=== PATIENT | male | born 1955 | race Caucasian/White ===

== ENCOUNTER 2019-04-14 17:25 | Inpatient (IN) ==
[2019-04-14 18:17] LABS: BASO# 0.06 X1000 (0.0-0.2); BASO% 0.4 % (0.0-0.8); EOS# 0.33 X1000 (0.0-0.7); EOS% 2.2 % (0.0-10.0); IMM GRAN# 0.05 X1000 (0.0-0.04); IMM GRAN% 0.3 % (0.0-0.5); LYMPH# 2.36 X1000 (1.2-3.4); LYMPH% 15.9 % (20.5-51.1); MCH 28.6 PG (27-31); MCHC 32.1 g/dL (33-37); MCV 89.2 FL (81-99); MONO# 1.39 X1000 (0.11-0.59); MONO% 9.4 % (1.7-9.3); MPV 9.9 FL (7.4-10.4); NEUT# 10.62 X1000 (1.4-6.5); NEUT% 71.8 % (42.2-75.2); PLT 305 X1000 (130-400); RBC 5.94 XMIL (4.7-6.1); RDW 14.5 % (11.5-14.5); WBC 14.81 X1000 (4.8-10.8)
[2019-04-14 18:30] LABS: INR 1.04; PROTIME 14.1 Seconds (11.0-16.0)
[2019-04-14 18:31] LABS: PTT 31.5 Seconds (22.3-41.8)
[2019-04-14 18:32] LABS: AGAP 14; ALBUMIN 4.4 g/dL (3.5-5.0); ALKALINE PHOSPHATASE 66 U/L (32-122); BUN 19 mg/dL (8-22); CALCIUM 8.9 mg/dL (8.8-10.2); CHLORIDE 95 mmol/L (98-107); CK PROFILE 149 U/L (24-204); COSMO 275; CREATININE 1.1 mg/dL (0.7-1.2); ESTIMATED GFR > 60; GLUCOSE 119 mg/dL (70-104); GOT 23 U/L (10-34); GPT 28 U/L (10-44); SODIUM 136 mmol/L (136-145); TCO2 27 mmol/L (25-35); TOTAL PROTEIN 7.4 g/dL (6.3-8.3)
[2019-04-14] MEDS ORDERED: SOLU-MEDROL IV ONE (18:48)
[2019-04-14] MEDS ORDERED: LEVAQUIN 500 MG/D5W 500 MG/100 ML IVPB IV ONE (18:48)
[2019-04-14] MEDS ORDERED: DUONEB (A & A) INH ONE (18:48)
[2019-04-14] MEDS ORDERED: NS 1,000 ML IV ONE ×2 (18:49→22:35)
--- NOTE | 2019-04-14 18:52 | Diag Imaging Result Doc PS360 ---
EXAM: CHEST-2 VIEWS HISTORY: sepsis protocol TECHNIQUE: Two views COMPARISON: 02/23/2012 FINDINGS: The lungs are hyperexpanded. There is scarring in the upper lungs. The heart is not enlarged. The vessels are not distended. There are no infiltrates. No pleural effusions. IMPRESSION: No pneumonia Electronically signed by Terell Sarabia 04/14/2019 6:50 PM
[2019-04-14 18:58] LABS: INFLUENZA A NEGATIVE (NEGATIVE); INFLUENZA B NEGATIVE (NEGATIVE)
[2019-04-14 19:16] LABS: BE 1.2 mmoll (-3.0-3.0); BLOOD TYPE ARTERIAL; HCO3-(ACT) 25.4 mmoll (20.0-26.0); METHB 1.3 % (0.0-1.5); O2(CT) 21.7 mL/dL (15.0-23.0); PCO2(98.6) 37 mmHg (35-45); PO2(98.6) 50 mmHg (60-100); SAMPLE BLOOD; SAO2 89.2 % (95.0-100.0); pH(98.6) 7.44 (7.35-7.45)
[2019-04-14 19:17] LABS: MODALITY CANNULA
[2019-04-14 19:18] LABS: ALLEN TEST YES
[2019-04-14] MEDS ORDERED: ZOFRAN IV PRN (20:16)
[2019-04-14] MEDS ORDERED: TYLENOL PO PRN (20:16)
[2019-04-14] MEDS ORDERED: MORPHINE IV PRN (20:16)
--- NOTE | 2019-04-14 20:16 | PROVIDER DOCUMENTATION ---
This chart was entered by Mariel Reid Scribe, acting as scribe for Yani Baptiste CRNP. HPI-Respiratory General - General Chief Complaint: SEPSIS ALERT - P Stated Complaint: COUGH / CONGESTION /BP HIGH Time Seen by Provider: 04/14/19 17:49 Source: RN/MD Allergies/Adverse Reactions: Patient Allergies Allergy/AdvReac Type Severity Reaction Status Date / Time No Known Allergies Allergy Verified 02/22/12 00:37 Home Medications: Home Medication List Medication Instructions Recorded Confirmed Last Taken Type Hydrocodone/Acetaminophen [Lortab 1 each PO TID PRN PRN 02/22/12 04/14/19 02/21/12 History 10-500 Tablet] Morphine DENTAL AMALGAM PROCESSOR [Morphine Sulfate DENTAL AMALGAM PROCESSOR] 30 mg PERCUTAN DIRECTED 02/22/12 04/14/19 02/22/12 History Atorvastatin Calcium 1 tab PO DAILY 04/14/19 04/14/19 Unknown History Fluticasone/Vilanterol [Breo 1 dose ORDERED DAILY 04/14/19 04/14/19 Unknown History Ellipta 100-25 Mcg INH] PRAVAstatin [Pravachol] 40 mg PO DAILY 04/14/19 04/14/19 Unknown History Tizanidine HCl 1 tab PO QHS 04/14/19 04/14/19 Unknown History - History of Present Illness-Resp Nature of Presenting Problem: pt is a 63yom c/o 1wk of sob, body aches, malaise and productive cough w/green sputum. pt also reports rt sided cp that is pressure like in nature that worsens when coughing. pt has hx of copd. is a former smoker. Quality of Pain: reports: pressure Severity in ED: reports: mild Onset/Duration: reports: 1 week ago Timing: reports: still present Cough Quality/Degree: reports: productive cough (green sputum) Modifying Factors: improves with: coughing (worsens cp) Associated Symptoms: reports: chest pain/soreness, cough, muscle/bodyaches, shortness of breath Review of Systems - Adult - REVIEW OF SYSTEMS - ADULT Constitutional: reports: see HPI, other (malaise). denies: chills, fever, fatique Eyes: reports: no symptoms reported Ears, Nose, Mouth & Throat: reports: no symptoms reported Cardiovascular: reports: see HPI, chest pain. denies: irregular heart rate, orthopnea, PND Respiratory: reports: see HPI, cough, excessive sputum production (green), shortness of breath. denies: hemoptysis, pleurisy, wheezing Gastrointestinal: reports: no symptoms reported Genitourinary: reports: no symptoms reported Musculoskeletal: reports: see HPI, muscle aches (generalized). denies: bone pain, back pain, neck pain Integumentary: reports: no symptoms reported Neurological: reports: no symptoms reported Psychiatric: reports: no symptoms reported Endocrine: reports: no symptoms reported Hematologic/Lymphatic: reports: no symptoms reported Allergic/Immunologic: reports: no symptoms reported All Other Systems: Reviewed and Negative Past History - Adult - PAST MEDICAL HISTORY-ADULT Review of Records: reports: Nursing Assessment Review, Medications Reviewed, Social history reviewed & non-contributory. Major Childhood Illnesses: reports: denies history Cardiovascular: reports: HTN, hyperlipidemia Respiratory: reports: COPD Gastrointestinal: reports: denies history Obstetrical/Gynecological: reports: denies history Genitourinary: reports: denies history Musculoskeletal: reports: chronic pain Neurological: reports: denies history Endocrine/Immune: reports: denies history Other Conditions: reports: denies history - PRIOR SURGERIES/PROCEDURES Surgical/Procedure History: reports: orthopedic (extremity), back/neck, other (abd pain pump, eye) - IMMUNIZATION STATUS Childhood Immunizations: See Nurse Assessment Flu Vaccine: See Nurse Assessment - FAMILY HISTORY Family History: reviewed, not pertinent - SOCIAL HISTORY Smoking: other (former smoker) Substance Use: none/never Physical Exam-General - PHYSICAL EXAM-ADULT Initial Vital Signs Reviewed: Yes - CONSTITUTIONAL General Appearance: alert, no apparent distress. negative: cachetic, lethargic, obtunded - EYES Eyes: PERRL/EOMI, pink conjunctivae - HEAD, EARS, NOSE, MOUTH & THROAT HENMT: normocephalic/atraumatic, moist mucous membranes - NECK Neck: non-tender, full range of motion, supple, normal inspection - RESPIRATORY Respiratory: lungs clear, normal breath sounds, no pleuratic chest pain, no respiratory distress, no accessory muscle use. negative: chest non-tender, decreased breath sounds, wheezing, pain on inspiration - CARDIOVASCULAR Cardiovascular: normal peripheral pulses, regular rate, rhythm, no edema - CHEST (BREASTS) Chest/Breast: tenderness (reproducible rt sided). negative: no tenderness - GASTROINTESTINAL (ABDOMEN) Abdominal Exam: normal bowel sounds, non tender, soft - MUSCULOSKELETAL Back Exam: normal inspection Extremity: normal range of motion, non-tender, normal inspection - SKIN Integumentary: normal color, normal turgor, diaphoresis. negative: warm/dry, erythema, swelling - NEUROLOGIC Neurologic: grossly normal, no motor/sensory deficits - PSYCHIATRIC Psych/Mental Status: normal mood/affect, normal thought content, normal thought process, oriented x 3 Progress - PLAN OF CARE/RESULTS Progress/Plan/Lab Results: Vital Signs - 8 hr 04/14/19 17:41 04/14/19 18:45 04/14/19 19:09 Temperature 99.5 F Pulse Rate 110 H 106 H Respiratory Rate 24 18 Blood Pressure 164/76 O2 Sat by Pulse Oximetry 92 L 86 L 92 L Laboratory Results - last 24 hr 04/14/19 04/14/19 04/14/19 17:59 18:00 18:00 WBC 14.81 H RBC 5.94 Hgb 17.0 Hct 53.0 H MCV 89.2 MCH 28.6 MCHC 32.1 L RDW Std Deviation 14.5 Plt Count 305 MPV 9.9 Immature Gran % (Auto) 0.3 Neut % (Auto) 71.8 Lymph % (Auto) 15.9 L Hardeman % (Auto) 9.4 H Eos % (Auto) 2.2 Baso % (Auto) 0.4 Immature Gran # (Auto) 0.05 H Neut # (Auto) 10.62 H Lymph # (Auto) 2.36 Hardeman # (Auto) 1.39 H Eos # (Auto) 0.33 Baso # (Auto) 0.06 PT INR PTT (Actin FS) D-Dimer, Quantitative 0.47 Specimen Type Sample Site pH pCO2 pO2 HCO3 Base Excess Oxyhemoglobin ABG O2 Sat (Calculated) ABG O2 Saturation ABG Carboxyhemoglobin ABG Methemoglobin Travis Test A-a O2 Difference Total Hemoglobin Lactate Liter Flow Blood Gas Modality FiO2 % Sodium 136 Potassium 5.0 Chloride 95 L Carbon Dioxide 27 Anion Gap 14 BUN 19 Creatinine 1.1 Estimated GFR/1.73 m2 > 60 BUN/Creatinine Ratio 17 Glucose 119 H Calculated Osmolality 275 Calcium 8.9 Total Bilirubin 0.30 AST 23 ALT 28 Alkaline Phosphatase 66 Creatine Kinase 149 Troponin T High Sens Naq-E-Dsidywriokb Pept Total Protein 7.4 Albumin 4.4 Globulin 3.0 Albumin/Globulin Ratio 1.0 Plasma Lactate Influenza A (Rapid) Influenza B (Rapid) 04/14/19 04/14/19 04/14/19 18:00 18:00 18:29 WBC RBC Hgb Hct MCV MCH MCHC RDW Std Deviation Plt Count MPV Immature Gran % (Auto) Neut % (Auto) Lymph % (Auto) [place] % (Auto) Eos % (Auto) Baso % (Auto) Immature Gran # (Auto) Neut # (Auto) Lymph # (Auto) Hardeman # (Auto) Eos # (Auto) Baso # (Auto) PT 14.1 INR 1.04 PTT (Actin FS) 31.5 D-Dimer, Quantitative Specimen Type Sample Site pH pCO2 pO2 HCO3 Base Excess Oxyhemoglobin ABG O2 Sat (Calculated) ABG O2 Saturation ABG Carboxyhemoglobin ABG Methemoglobin Travis Test A-a O2 Difference Total Hemoglobin Lactate Liter Flow Blood Gas Modality FiO2 % Sodium Potassium Chloride Carbon Dioxide Anion Gap BUN Creatinine Estimated GFR/1.73 m2 BUN/Creatinine Ratio Glucose Calculated Osmolality Calcium Total Bilirubin AST ALT Alkaline Phosphatase Creatine Kinase Troponin T High Sens 15 Qyx-Y-[id number] Pept Total Protein Albumin Globulin Albumin/Globulin Ratio Plasma Lactate Influenza A (Rapid) NEGATIVE Influenza B (Rapid) NEGATIVE 04/14/19 04/14/19 04/14/19 18:29 18:29 19:00 WBC RBC Hgb Hct MCV MCH MCHC RDW Std Deviation Plt Count MPV Immature Gran % (Auto) Neut % (Auto) Lymph % (Auto) Hardeman % (Auto) Eos % (Auto) Baso % (Auto) Immature Gran # (Auto) Neut # (Auto) Lymph # (Auto) Hardeman # (Auto) Eos # (Auto) Baso # (Auto) PT INR PTT (Actin FS) D-Dimer, Quantitative Specimen Type ARTERIAL Sample Site R BRACHIAL pH 7.44 pCO2 37 pO2 50 L HCO3 25.4 Base Excess 1.2 Oxyhemoglobin 86.0 L* ABG O2 Sat (Calculated) 21.7 ABG O2 Saturation 89.2 L ABG Carboxyhemoglobin 2.30 ABG Methemoglobin 1.3 Travis Test YES A-a O2 Difference 103.0 Total Hemoglobin 18.0 H Lactate 0.90 Liter Flow 2.0 Blood Gas Modality CANNULA FiO2 % 28.0 Sodium Potassium Chloride Carbon Dioxide Anion Gap BUN Creatinine Estimated GFR/1.73 m2 BUN/Creatinine Ratio Glucose Calculated Osmolality Calcium Total Bilirubin AST ALT Alkaline Phosphatase Creatine Kinase Troponin T High Sens Pxo-D-Wibmbpmqnbc Pept 45 Total Protein Albumin Globulin Albumin/Globulin Ratio Plasma Lactate 1.2 Influenza A (Rapid) Influenza B (Rapid) Orders Category Date Time Status Cardiac Monitoring DIRECTED Care 04/14/19 17:46 Active IV Insertion ORDERED Care 04/14/19 17:46 Completed Notify MD of + Sepsis Screen NOW Care 04/14/19 17:46 Active Notify Physician As Ordered Care 04/14/19 17:46 Active CHEST-2 VIEWS [RAD] Stat Exams 04/14/19 17:46 Completed ABG [RESP] Routine Lab 04/14/19 19:00 Completed BLOOD CULTURE [BLDCUL] Stat Lab 04/14/19 18:36 Ordered BNP [PRO B-NATRIURETIC PEPTIDE] Stat Lab 04/14/19 18:29 Completed CBC WITH DIFF [HEME] Stat Lab 04/14/19 18:00 Completed CK PROFILE [SP CHEM] Stat Lab 04/14/19 18:00 Completed COMPREHENSIVE METABOLIC PANEL [CHEM] Stat Lab 04/14/19 18:00 Completed D-DIMER [COAG] Stat Lab 04/14/19 17:59 Completed Flu [INFLUENZA SCREEN PL] Stat Lab 04/14/19 18:29 Completed LACTATE, PLASMA [CHEM] Lab 04/14/19 18:29 Completed LACTATE, PLASMA [CHEM] Lab 04/14/19 21:00 Uncollected LACTATE, PLASMA [CHEM] Lab 04/15/19 00:00 Uncollected PROTIME WITH INR [COAG] Stat Lab 04/14/19 18:00 Completed PTT [COAG] Stat Lab 04/14/19 18:00 Completed TROPONIN T HIGH SENSITIVITY Stat Lab 04/14/19 18:00 Completed URINALYSIS W/POSS RFLX CULT [URINALYSIS] Stat Lab 04/14/19 20:15 Ordered 0.9% Sodium Chloride Inj [Ns] 1,000 ml Med 04/14/19 18:49 Discontinued IV 999 mls/hr Albuterol 2.5MG/Ipratrop 0.5MG [Duoneb (A & A)] Med 04/14/19 18:48 Di scontinued 3 ml INH NOW ONE Levofloxacin 500 mg/D5w [Levaquin 500 mg/D5w] Med 04/14/19 18:48 Discontinued 500 mg in 100 ml IV NOW Methylprednisolone Sod Succ [Solu-Medrol] Med 04/14/19 18:48 Discontinued 125 mg IV NOW ONE Aerosol Treatments Routine Oth 04/14/19 18:48 Completed Aerosol Treatments Stat Oth 04/14/19 18:48 Completed Oxygen Device Stat Oth 04/14/19 17:46 Active EKG [EKG] Stat Ther 04/14/19 17:57 Ordered EKG [EKG] Stat Ther 04/14/19 18:01 Ordered Result Diagrams: 04/14/19 18:00 04/14/19 18:00 - CONSULTS/PCP/HOSPITALIST Notification #1 *Consult/PCP/Hospitalist*: DR. HARO Time Discussed: 20:16 Consult Disposition: Admit Departure - Departure Date of Disposition Decision: 04/14/19 Time of Disposition Decision: 20:16 DIAGNOSIS: COPD exacerbation, Hypoxia Disposition: ADMITTED INPATIENT 09 Certified Medical Emergency: Emergent Condition: Stable Referrals and Follow-Ups: Joe Pulido MD [Primary Care Provider] - - Critical Care Note This patient required my direct & personal management of CC.: No Attestation - Physician/ ADONIS Attestation Patient care was provided by Advanced Practice Provider:: Yes Advanced Practice Provider:: Yani Baptiste Advanced Practice Provider documentation review:: The Mid-level provider documentation, treatment plan and medical decision making was reviewed by the physician who agrees with all treatment and medical decision making by the MLP. The physician spent face to face time with patient:: No Advanced Practice Provider documentation review:: Supervising physician onsite and consulted in the evaluation and care of this patient. The physician did not have a face to face encounter with the patient. This chart was documented by the indicated scribe, (Mariel Reid Scribe) and accurately reflects the services I performed and decisions made by me, Yani Baptiste CRNP, as attested by the provider's signature.
[2019-04-14 20:19] LABS: URINE SOURCE CLEAN CATCH
[2019-04-14 20:24] LABS: BILIRUBIN URINE NEGATIVE (NEGATIVE); BLOOD URINE NEGATIVE (NEGATIVE); COLOR YELLOW; GLUCOSE URINE NEGATIVE (NEGATIVE); KETONE URINE TRACE mg/dL (NEGATIVE); LEUKOCYTES URINE NEGATIVE (NEGATIVE); NITRITE URINE NEGATIVE (NEGATIVE); PROTEIN URINE 30 mg/dL (NEGATIVE); TURBIDITY URINE CLEAR (CLEAR); UROBILINOGEN URINE NORMAL (NORMAL)
[2019-04-14 20:25] LABS: UR EPITHELIAL CELLS <10 /HPF (<10); URINE BACTERIA NEGATIVE /HPF; URINE RBC <10 /HPF (<10); URINE WBC <10 /HPF (<10)
[2019-04-14] MEDS ORDERED: NICODERM PATCH TD ONE (22:00)
[2019-04-14] MEDS: ZITHROMAX 500 MG/NS 500 MG/250 ML IVPB IV SCH (22:05)
[2019-04-14] MEDS ORDERED: NORCO-10 PO ONE (22:10)
[2019-04-14] MEDS ORDERED: ZANAFLEX PO ONE (22:10)
[2019-04-15] MEDS: DUONEB (A & A) INH SCH ×4 (00:19→11:00)
[2019-04-15] MEDS ORDERED: SOLU-MEDROL IV SCH (01:00)
[2019-04-15] MEDS ORDERED: MORPHINE PERCUTAN SCH (11:45)
[2019-04-15] MEDS ORDERED: NORCO-10 PO PRN (12:20)
--- NOTE | 2019-04-15 12:37 | HISTORY AND PHYSICAL ---
PRIMARY CARE PROVIDER: Dr. Pulido. PRIMARY PAIN CLINIC: [facility], Dr. Sapp in [place]. CHIEF COMPLAINT: Shortness of breath and chest pain with cough. HISTORY OF PRESENT ILLNESS: Mr. Dominic Mckenzie is a 63-year-old, male with a medical history of COPD, hyperlipidemia, hypertension, chronic back pain, essential tremors, and bilateral footdrop that he has to wear braces for, who is here with progressive increased shortness of breath since Monday. He feels like there is phlegm stuck in the back of his throat that he cannot really get up, but when he does get up phlegm, it is the color of green. He does have chest pain, but is associated when he coughs. Denies fever. Here, he has an elevated white blood cell count. Temp, the highest is 99.5 here. He is requiring oxygen. However, he does not wear oxygen at home. Chest x-ray does not show any pneumonia, so will admit for COPD exacerbation and hypoxic respiratory failure. PAST MEDICAL HISTORY: 1. Essential tremors. 2. Bilateral footdrop. 3. Chronic obstructive pulmonary disease. No home oxygen. 4. Hyperlipidemia. 5. Chronic back pain. He has a morphine pain pump. 6. Hypertension. 7. Peptic ulcer disease. PAST SURGICAL HISTORY: 1. Bilateral cataracts. 2. Lens implants. 3. Pain pump replaced twice. 4. Five back surgeries. 5. Gastric perforation surgery for that. 6. Left knee surgery. 7. Finger surgery. SOCIAL HISTORY: He was a 3 pack per day smoker, started at the age of 11, and quit in 2009. He also quit drinking alcohol at the age of 28. He denies any illicit drug use. He is disabled. FAMILY HISTORY: Mother: No medical conditions. Father: COPD. ALLERGIES: No known drug allergies. HOME MEDICATIONS: 1. Tizanidine 4 mg p.o. nightly. 2. Atorvastatin 40 mg p.o. daily. 3. Breo Ellipta inhaled. 4. [place] 10 one tablet p.o. t.i.d. p.r.n. 5. Morphine HONING MACHINE OPERATOR SEMIAUTOMATIC percutaneously. 6. Pravastatin 40 mg p.o. daily. REVIEW OF SYSTEMS: A 14-point review of systems is complete and all are negative, except for those mentioned in the above HPI. PHYSICAL EXAMINATION: VITAL SIGNS: Temperature 99 degrees, heart rate 116, respiratory rate 20, blood pressure 140/76, O2 saturation 91% on 4 L nasal cannula. GENERAL: Mr. Dominic Mckenzie is a 63-year-old, male, who is in no acute distress and is able to answer questions appropriately. Essential tremors are noted throughout the body's full body actions. HEENT: Atraumatic, normocephalic. Pupils equal, round, reactive to light. Extraocular movements intact. Mucous membranes are moist. NECK: Trachea midline. CARDIOVASCULAR: S1, S2. Tachycardic rate and rhythm. No rubs, gallops, murmurs. No lower extremity edema. There are +2 dorsalis and radial pulses. Negative JVD or carotid bruits. PULMONARY: Mild expiratory wheezes noted throughout. Tolerating 4 L nasal cannula. GASTROINTESTINAL: Soft, nontender, nondistended. Positive bowel sounds x4. EXTREMITIES: Moves all extremities equally. Full range of motion. NEUROLOGIC: A and O x3. Follows commands. Sensory is intact. SKIN: Warm, dry, intact. Face is a little red. LABORATORY DATA: White blood cells 14,000 hemoglobin 17, hematocrit 53, platelet count 305. INR is 1.04, PTT is 31.5. D-dimer 0.47. ABGs on 2 L nasal cannula: PH 7.44, pCO2 of 37, PO2 of 50, bicarb 25, base excess 1.2, saturation 96%. Lactate 0.9. Sodium 136, potassium 5.0, BUN 19, creatinine is 1.1, glucose 119, calcium 8.9. Bilirubin 0.30, AST 23, ALT 28. CK 149, troponin 15. ProBNP 45. Albumin is 4.4. Lactate 1.2, 0.7, and 1.0. Urinalysis shows 30 protein, trace ketones. Flu negative. IMAGING: Chest x-ray: No pneumonia. ASSESSMENT AND PLAN: 1. Chronic obstructive pulmonary disease exacerbation with acute on chronic hypoxemic respiratory failure. He does not wear oxygen at home. He is requiring oxygen here. Will do nebulizers, steroids, antibiotic coverage. Will also try to get a sputum as he reports the phlegm being green. However, chest x-ray does not reveal any pneumonia at this time. Will titrate oxygen as able. 2. Essential tremors. He takes nothing for this at home. 3. Chronic pain syndrome in his back. He has a morphine pain pump. He also takes [place] and tizanidine. Will continue all of that. 4. Hypertension, currently stable. 5. Hyperlipidemia. Continue statin. 6. Bilateral footdrop. Wears foot braces, which he currently has on. 7. Deep venous thrombosis prophylaxis. Lovenox. Dictated by WHITNEY Sanchez for Prashant Pena MD cc: WHITNEY Sanchez MD
[2019-04-15] MEDS: NORCO-10 PO PRN ×2 (13:00→21:10)
[2019-04-15] MEDS: SOLU-MEDROL IV SCH ×2 (13:01→21:09)
[2019-04-15] MEDS: ZOSYN 3.375 GM in NS 50 ML IV SCH ×2 (13:03→17:47)
[2019-04-15] MEDS: LOVENOX SUBQ SCH (13:07)
[2019-04-15] MEDS: XOPENEX NEB INH SCH ×3 (15:32→22:50)
[2019-04-15] MEDS: ATROVENT NEB INH SCH ×3 (15:32→22:50)
[2019-04-15] MEDS ORDERED: PNEUMOVAX 23 IM ONE (17:02)
[2019-04-15] MEDS: MUCINEX PO SCH ×2 (17:20→21:09)
[2019-04-15] MEDS: PULMICORT INH SCH (19:12)
[2019-04-15] MEDS: MUCOMYST 20% INH SCH (19:12)
--- NOTE | 2019-04-15 20:16 | HISTORY AND PHYSICAL ---
ADDENDUM: The patient is seen and examined by myself. Full note dictated and discussed with nurse practitioner. The patient is a 63-year-old male with a 1-week history of shortness of breath, cough, congestion, increased sputum production. He is a former heavy smoker. He is not on oxygen at home. The patient currently is currently in mild respiratory distress. He has mild wheezing. We are going to admit him to the hospital, place him on antibiotics, breathing treatments, oxygen. We will follow his blood pressures, which were elevated, as well as his oxygen which is low. He does have a leukocytosis and we will follow. cc: Prashant Pena MD
[2019-04-15] MEDS ORDERED: LIPITOR PO SCH (21:00)
[2019-04-15] MEDS: ZANAFLEX PO SCH (21:10)
[2019-04-15] MEDS: ZITHROMAX 500 MG/NS 500 MG/250 ML IVPB IV SCH (21:11)
[2019-04-16] MEDS: ZOSYN 3.375 GM in NS 50 ML IV SCH ×4 (00:30→17:53)
[2019-04-16] MEDS: ATROVENT NEB INH SCH ×6 (03:08→22:43)
[2019-04-16] MEDS: XOPENEX NEB INH SCH ×6 (03:09→22:43)
[2019-04-16] MEDS: SOLU-MEDROL IV SCH ×3 (03:20→20:53)
[2019-04-16] MEDS ORDERED: NS 50 ML ONE (05:03)
[2019-04-16] MEDS: PROTONIX PO SCH ×2 (05:13→06:05)
[2019-04-16 07:07] LABS: BASO# 0.02 X1000 (0.0-0.2); BASO% 0.1 % (0.0-0.8); HEMATOCRIT 48.6 % (42.0-52.0); HEMOGLOBIN 15.6 g/dL (14.0-18.0); IMM GRAN# 0.14 X1000 (0.0-0.04); IMM GRAN% 0.6 % (0.0-0.5); LYMPH# 2.31 X1000 (1.2-3.4); LYMPH% 10.5 % (20.5-51.1); MCH 28.5 PG (27-31); MCHC 32.1 g/dL (33-37); MCV 88.8 FL (81-99); MONO# 0.71 X1000 (0.11-0.59); MONO% 3.2 % (1.7-9.3); MPV 9.4 FL (7.4-10.4); NEUT# 18.72 X1000 (1.4-6.5); NEUT% 85.6 % (42.2-75.2); PLT 363 X1000 (130-400); RBC 5.47 XMIL (4.7-6.1); RDW 14.7 % (11.5-14.5)
[2019-04-16 07:11] LABS: AGAP 13; ALBUMIN 3.9 g/dL (3.5-5.0); ALKALINE PHOSPHATASE 56 U/L (32-122); BUN 23 mg/dL (8-22); CALCIUM 8.8 mg/dL (8.8-10.2); CHLORIDE 101 mmol/L (98-107); COSMO 281; ESTIMATED GFR > 60; GLUCOSE 163 mg/dL (70-104); GOT 38 U/L (10-34); GPT 33 U/L (10-44); POTASSIUM 4.5 mmol/L (3.5-5.1); SODIUM 137 mmol/L (136-145); TCO2 23 mmol/L (25-35); TOTAL PROTEIN 7.1 g/dL (6.3-8.3)
--- NOTE | 2019-04-16 08:08 | Diag Imaging Result Doc PS360 ---
EXAM: CHEST-2 VIEWS HISTORY: short of breath TECHNIQUE: Two views COMPARISON: 04/14/2019 FINDINGS: The lungs are hyperexpanded. There is scarring in the lung apices. No cardiomegaly. No pulmonary edema. No pleural effusions. IMPRESSION: Hyperexpanded lungs with fibrosis. Electronically signed by Terell Sarabia 04/16/2019 8:05 AM
[2019-04-16] MEDS: PULMICORT INH SCH ×2 (08:29→19:39)
[2019-04-16] MEDS: BREO ELLIPTA 100/25 MCG INH INH SCH (08:30)
[2019-04-16] MEDS: MUCOMYST 20% INH SCH ×2 (08:30→19:38)
[2019-04-16] MEDS: NORVASC PO SCH (08:37)
[2019-04-16] MEDS: LOTENSIN PO SCH (08:37)
[2019-04-16] MEDS: MUCINEX PO SCH ×2 (08:37→20:53)
[2019-04-16] MEDS ORDERED: [UNRECOGNIZED DRUG - OTHER] PO SCH (09:00)
[2019-04-16] MEDS ORDERED: BENAZEPRIL PO SCH (09:00)
[2019-04-16] MEDS ORDERED: AMLODIPINE BESYLATE PO SCH (09:00)
[2019-04-16 10:08] LABS: LYMPHS 5 % (21-51); MONO 3 % (1-9); SEGS 92 % (42-75)
[2019-04-16] MEDS: LOVENOX SUBQ SCH (12:20)
--- NOTE | 2019-04-16 19:02 | PROGRESS NOTE ---
DATE: 04/16/2019 SUBJECTIVE: Patient is still having some shortness of breath and coughing, but states he is feeling a little bit better. Still having difficulty ambulating to the restroom due to his shortness of breath. PHYSICAL EXAMINATION: Vital Signs: Reviewed. Temperature 97.9 degrees, pulse 100, respiratory rate 18, BP 143/60. General: Patient is awake, alert. He is in mild distress, although he did just ambulate back from the restroom. HEENT: Normocephalic. Neck: Supple. Cardiovascular: Regular rate. Chest: Decreased breath sounds. Harsh wheezing throughout. Poor air movement throughout. Abdomen: Soft, nondistended, obese. Extremities: Moves all extremities. No edema. Neurologic: No focal changes. Chest x-ray demonstrates hyperexpanded lungs with fibrosis. ASSESSMENT: 1. Chronic obstructive pulmonary disease with exacerbation. 2. Essential tremors. 3. Chronic pain. 4. Hypertension. 5. Chronic obstructive pulmonary disease. PLAN: Given the patient has worsened exam, we are going to slowly wean his steroids if possible. Continue azithromycin, Zosyn, oxygen, and will follow. cc: Prashant Pena MD
[2019-04-16] MEDS: ZANAFLEX PO SCH (20:53)
[2019-04-16] MEDS: ZITHROMAX PO SCH (20:53)
[2019-04-16] MEDS: PRAVACHOL PO SCH (20:53)
[2019-04-17] MEDS: ZOSYN 3.375 GM in NS 50 ML IV SCH ×4 (01:19→18:22)
[2019-04-17] MEDS: ATROVENT NEB INH SCH ×5 (02:51→19:40)
[2019-04-17] MEDS: XOPENEX NEB INH SCH ×5 (02:51→19:40)
[2019-04-17] MEDS: SOLU-MEDROL IV SCH ×2 (04:56→18:22)
[2019-04-17] MEDS: PROTONIX PO SCH ×2 (05:00→06:22)
[2019-04-17 06:13] LABS: BASO# 0.01 X1000 (0.0-0.2); HEMOGLOBIN 14.9 g/dL (14.0-18.0); IMM GRAN# 0.23 X1000 (0.0-0.04); IMM GRAN% 1.1 % (0.0-0.5); LYMPH% 10.5 % (20.5-51.1); MCH 28.5 PG (27-31); MCHC 31.7 g/dL (33-37); MCV 89.9 FL (81-99); MONO# 0.72 X1000 (0.11-0.59); MONO% 3.6 % (1.7-9.3); MPV 9.5 FL (7.4-10.4); NEUT# 17.03 X1000 (1.4-6.5); NEUT% 84.8 % (42.2-75.2); PLT 356 X1000 (130-400); RBC 5.23 XMIL (4.7-6.1); RDW 14.6 % (11.5-14.5); WBC 20.09 X1000 (4.8-10.8)
[2019-04-17] MEDS: PULMICORT INH SCH ×2 (07:10→19:40)
[2019-04-17] MEDS: BREO ELLIPTA 100/25 MCG INH INH SCH (07:15)
[2019-04-17 08:03] LABS: LYMPHS 7 % (21-51); MONO 3 % (1-9); SEGS 90 % (42-75)
[2019-04-17] MEDS: NORVASC PO SCH (08:44)
[2019-04-17] MEDS: LOTENSIN PO SCH (08:44)
[2019-04-17] MEDS: MUCINEX PO SCH ×2 (08:44→20:37)
[2019-04-17] MEDS: LOVENOX SUBQ SCH (11:57)
[2019-04-17] MEDS: NORCO-10 PO PRN ×2 (15:28→20:37)
[2019-04-17] MEDS: ZANAFLEX PO SCH (20:37)
[2019-04-17] MEDS: PRAVACHOL PO SCH (20:37)
[2019-04-17] MEDS: ZITHROMAX PO SCH (20:44)
--- NOTE | 2019-04-17 20:52 | PROGRESS NOTE ---
DATE: 04/17/2019 SUBJECTIVE: Patient notes that is feeling better but still having cough, congestion and still having shortness of breath. Denies any current fevers. OBJECTIVE: Vital signs: Temperature 97.6 degrees, pulse 92, respiratory rate 18, BP 132/55. General: Patient is awake, currently in mild respiratory distress. HEENT: Normocephalic. Neck: Supple. Cardiovascular: Regular rate. Chest: Decreased but equal. Positive wheezing but improved, better air movement. Abdomen: Soft. Extremities: Moves all extremities. Neurologic: No changes. ASSESSMENT: 1. Chronic obstructive pulmonary disease with exacerbation. 2. Essential tremors. 3. Chronic pain. 4. Hypertension. 5. Hyperlipidemia. 6. Bilateral footdrop. PLAN: We will continue patient in the hospital, continue azithromycin p.o., Zosyn IV. White count is still elevated at 21. I expect this is more Solu-Medrol related. Continue Solu-Medrol, although decrease to 40 IV q.8, and we will follow. Hopefully, patient can improve and be discharged home over the next 1 or 2 days. cc: Prashant Pena MD
[2019-04-18] MEDS: ZOSYN 3.375 GM in NS 50 ML IV SCH ×2 (00:07→06:09)
[2019-04-18] MEDS: ATROVENT NEB INH SCH ×3 (00:14→07:36)
[2019-04-18] MEDS: XOPENEX NEB INH SCH ×3 (00:14→07:36)
[2019-04-18] MEDS: SOLU-MEDROL IV SCH (06:09)
[2019-04-18] MEDS: PROTONIX PO SCH (06:10)
[2019-04-18 07:00] LABS: BASO# 0.01 X1000 (0.0-0.2); BASO% 0.1 % (0.0-0.8); HEMATOCRIT 47.7 % (42.0-52.0); HEMOGLOBIN 15.3 g/dL (14.0-18.0); IMM GRAN% 1.7 % (0.0-0.5); LYMPH# 2.27 X1000 (1.2-3.4); LYMPH% 12.9 % (20.5-51.1); MCH 28.8 PG (27-31); MCHC 32.1 g/dL (33-37); MCV 89.8 FL (81-99); MONO# 0.87 X1000 (0.11-0.59); MONO% 4.9 % (1.7-9.3); MPV 9.8 FL (7.4-10.4); NEUT# 14.18 X1000 (1.4-6.5); NEUT% 80.4 % (42.2-75.2); PLT 368 X1000 (130-400); RBC 5.31 XMIL (4.7-6.1); RDW 14.6 % (11.5-14.5); WBC 17.63 X1000 (4.8-10.8)
[2019-04-18 07:33] VITALS: BP 141/92
[2019-04-18] MEDS: BREO ELLIPTA 100/25 MCG INH INH SCH (07:36)
[2019-04-18] MEDS: PULMICORT INH SCH (07:36)
[2019-04-18] MEDS ORDERED: OMNICEF PO SCH (09:00)
[2019-04-18] MEDS: LOTENSIN PO SCH (09:01)
[2019-04-18] MEDS: NORVASC PO SCH (09:01)
[2019-04-18] MEDS: MUCINEX PO SCH (09:02)
--- NOTE | 2019-04-18 15:47 | DISCHARGE SUMMARY ---
ADMISSION DATE: 04/15/2019 DISCHARGE DATE: 04/18/2019 ADMISSION DIAGNOSES: 1. Chronic obstructive pulmonary disease exacerbation with acute on chronic hypoxemic respiratory failure. 2. Essential tremors. 3. Chronic pain syndrome in his back. 4. Hypertension. 5. Hyperlipidemia. 6. Bilateral foot drop, chronic in nature. DISCHARGE DIAGNOSES: 1. Chronic obstructive pulmonary disease exacerbation. 2. Essential tremors. 3. Chronic pain. 4. Hypertension. 5. Hyperlipidemia. 6. Bilateral foot drop. CONSULTATIONS: None. SURGERIES AND PROCEDURES: None. HOSPITAL COURSE: On 04/14/2019, the evening of, Mr. Dominic Mckenzie presented with complaints of shortness of breath and chest pain with his cough. He was admitted throughout the night with the admit date being the . He has a medical history of COPD, hyperlipidemia, hypertension, and chronic back pain, essential tremors, and bilateral foot drop that he wears braces for. He was here with progressive increased shortness of breath since Monday which would be 4 days ago now. He felt like there was phlegm stuck in the back of his throat but he could not ever really get it up. He denied any fever. The white count was elevated. His fever had gotten up to 99.5. He was requiring oxygen. He does not wear oxygen at home. However, chest x-ray did not show any pneumonia so he was admitted for COPD exacerbation and hypoxemic respiratory failure. He was started on oxygen, nebulizers, steroids, and antibiotic coverage. There was an attempt to get a sputum to make sure that there was not any pneumonia type growing that a chest x-ray did not catch and it was negative. He ended up staying until today. White count did increase more but he continued to improve. DISCHARGE VITAL SIGNS: Temperature 98, heart rate 81, respiratory rate 16, blood pressure 141/92, and O2 saturation 94% on room air. DISCHARGE LAB DATA: White blood cells 17,000, hemoglobin 15, hematocrit 47, and platelet count 368. His last BMP was on the . Sodium 137, potassium 4.5, BUN 23, creatinine 1, glucose 163, calcium 8.8, bilirubin 0.20, AST 38, ALT 33, and albumin 3.9. His lactates were never positive. PERTINENT IMAGING: Chest x-ray on the : No pneumonia. Chest x-ray on the : Hyperexpanded lungs with fibrosis but no pneumonia. Telemetry strips: Sinus rhythm. DISCHARGE MEDICATIONS: 1. Pravachol 40 mg p.o. nightly. 2. Tizanidine 4 mg p.o. nightly. 3. Amlodipine/benazepril 1 capsule p.o. daily. 4. Atorvastatin 40 mg p.o. daily. 5. Breo Ellipta as ordered. 6. Lidocaine patch topical p.r.n. 7. [place] 1 tab p.o. t.i.d. p.r.n. 8. Morphine pump OUTSIDE [employer]OR SALES. 9. Medrol Dosepak, steroid tapering Dosepak. 10.Cefdinir 300 mg p.o. twice a day for 4 more days. 11.Tylenol. 12.Azithromycin 250 mg p.o. nightly for 4 more nights. PHYSICIAN FOLLOW UPS: Dr. Joe Pulido. DISCHARGE DIET: Regular. DISCHARGE ACTIVITY: As tolerated. DISCHARGE INSTRUCTIONS: If your condition changes contact a physician and/or return to the Emergency Department. Changes may include but are not limited to shortness of breath, increased fatigue, excessive bleeding, unexplained weight loss or gain, unimaginable pain, and signs or symptoms of infection. DISCHARGE DISPOSITION: Home. Dictated by WHITNEY Sanchez for Prashant Pena MD cc: WHITNEY Sanchez MD
--- NOTE | 2019-04-19 18:00 | DISCHARGE SUMMARY ---
ADMISSION DATE: 04/15/2019 DISCHARGE DATE: 04/18/2019 DISCHARGE DIAGNOSES: 1. Acute hypoxic respiratory failure, resolved. 2. Chronic obstructive pulmonary disease with exacerbation, stable, improved. 3. Chronic pain. 4. Essential tremors. 5. Hypertension. 6. Hyperlipidemia. 7. Bilateral footdrop. 8. Leukocytosis. 9. Hypertension. CONSULTATIONS: None. PROCEDURES: None. HOSPITAL COURSE: The patient is a 63-year-old male who presented to the hospital with increased cough, congestion, shortness of breath, and increased work of breathing. He was noted to be hypoxic as well as hypertensive. He was placed on antibiotics, breathing treatments, oxygen and steroids. Over the next few days, we were able to wean his steroids as well as his oxygen. On discharge, although his white count was still elevated, clinically he was improved. He is off oxygen, saturating well on room air. We will discharge him home on Medrol Dosepak, azithromycin and Omnicef. He is instructed to follow up with his primary care in 1 to 2 weeks. TIME SPENT: Greater than 30 minutes was spent in total care. cc: Prashant Pena MD
== END 2019-04-18 09:14 | disposition home or self-care (01) | DRG 190 ==
LOC: P.ED 17:25 → P.EDIPHOLD 04-15 07:47
PROVIDERS: ATTEND Family Medicine